=== PATIENT | female | born 1995 | race African-American/Black ===

== ENCOUNTER 2020-10-30 18:21 | Emergency (ER) | payer OTHER, SELFPAY ==
--- NOTE | ~2020-10-30 | CT_ITS ---
EXAMINATION: CT abdomen pelvis w con DATE: 10/30/2020 22:45 INDICATION: Nausea and vomiting TECHNIQUE: Computed tomography (CT) of the abdomen and pelvis was performed with 100 cc Omnipaque 350 intravenous contrast. The dose-length product was 1600.57 mGy-cm. Automated exposure control and ite rative reconstruction technique were employed. COMPARISON: None. FINDINGS: Lung bases are unremarkable. Heart size is normal. No pleural or pericardial effusion. No s ignificant vascular abnormality. No lymphadenopathy. Fatty infiltration of the liver. Gallbladder is present. The spleen, pancreas, adrenal glands and kid neys are normal. Nonobstructive bowel gas pattern. No free air or free fluid. Unremarkable appendix. No acute bone or joint abnormality. IMPRESSION: 1. No acute abdominal abnormality. Reviewed, dictated and finalized at location A.
[2020-10-30 19:23] VITALS: BP 145/103; PULSE 121; RESP 18; TEMP 36.5; O2SAT 96
[2020-10-30 19:44] LABS: Basophils Percent Auto 0.1 % (0.2-1.2); Eosinophils Absolute Auto 0.1 K/mm3 (0-0.3); Eosinophils Percent Auto 0.5 % (0-4.4); Hematocrit 40.7 % (37.0-47.0); Hemoglobin 13.2 g/dL (12.0-15.0); Immature Granulocyte Absolute 0.05 K/mm3 (0.00-0.031); Immature Granulocyte Percent A 0.4 % (0-0.5); Lymphocytes Absolute Auto 1.46 K/mm3 (0.9-3.2); Lymphocytes Percent Auto 10.3 % (18.3-44.2); Mean Corpuscular HGB Conc 32.4 g/dl (32-36); Mean Corpuscular Hemoglobin 28.1 pg (26-34); Mean Corpuscular Volume 86.6 fl (80-100); Mean Platelet Volume 9.4 fl (7.4-10.4); Monocytes Absolute Auto 0.4 K/mm3 (0.1-0.6); Monocytes Percent Auto 2.5 % (2.6-8.5); Neutrophils Absolute Auto 12.3 K/mm3 (1.3-6.7); Neutrophils Percent Auto 86.2 % (45.5-73.1); Platelet Count Result 350 k/mm3 (150-375); Red Cell Distribution Width 14.3 % (11.5-14.5); White Blood Count 14.2 K/mm3 (4.5-10.0)
[2020-10-30 19:54] LABS: Alanine Aminotransferase 19 U/L (4-35); Albumin Level 4.3 g/dL (3.5-5.1); Alkaline Phosphatase 108 U/L (38-126); Anion Gap 8 mmol/L (8-16); Aspartate Amino Transferase 26 U/L (14-36); Bilirubin,Total 0.6 mg/dL (0.2-1.3); Blood Urea Nitrogen 11 mg/dL (7-17); Calcium 8.9 mg/dL (8.4-10.2); Carbon Dioxide 25 mmol/L (22-30); Chloride 107 mmol/L (98-107); Estimated CRCL calculation 121 ml/min; Estimated Glomerular Filt Rate > 60; Glucose 108 mg/dL (65-105); Lipase 85 U/L (23-300); Potassium 3.8 mmol/L (3.4-5.0); Sodium 140 mmol/L (137-145)
[2020-10-30 20:48] LABS: Add Urine Microscopic? YES; Appearance Urine Cloudy (Clear); Bacteria Urine Trace /hpf; Bilirubin Urine Negative (Negative); Blood Urine 1+ (Negative); Color Urine Yellow (Yellow); Glucose Urine UA Negative (Negative); Ketones Urine Negative (Negative); Leukocyte Esterase Ur Negative LEU/UL (Negative); Mucus Urine Moderate /lpf; Nitrate Urine Negative (Negative); Protein Urine 1+ mg/dL (Negative); RBC Urine 0-2 /hpf (0-2); Specific Grav Ur 1.024 (1.001-1.035); Squamous Epithelial Cell Urine Moderate /hpf (Few); Urobilinogen Urine Negative mg/dL (<2.0); WBC Urine 0-3 /hpf
[2020-10-30 21:10] VITALS: BP 130/89; PULSE 90
[2020-10-30 21:11] VITALS: BP 139/100; PULSE 97
[2020-10-30 21:13] VITALS: BP 145/105; PULSE 98; RESP 16; O2SAT 98
[2020-10-30] MEDS: ONDANSETRON INJ 4 MG/2 ML VIAL IV PUSH (21:36)
[2020-10-30] MEDS: SODIUM CHLORIDE 0.9% IV 1,000 ML 999 ML IV CONT (21:37)
[2020-10-30] MEDS: DICYCLOMINE HCL INJ 20 MG/2 ML VIAL IM (21:37)
[2020-10-30 23:00] VITALS: BP 130/98; PULSE 90; RESP 16; O2SAT 99
--- NOTE | 2020-10-30 23:44 | ED.GENADULT ---
HPI - General Adult General Chief complaint: Nausea/Vomiting/Diarrhea Stated complaint: vomiting Time Seen by Provider: 10/30/20 21:01 History of Present Illness HPI narrative: Patient 25-year-old female who presents the emergency department with chief complaint of nausea vomiting and abdominal discomfort. Patient reports that she is also had diarrhea with this reports that her stomach is cramping and reports she is had several episodes of vomiting. The patient states the symptoms began today she had about 6 episodes of diarrhea as well. Patient denies blood in her stool denies fever denies chills. Patient states she feels little on the dehydrated side. Patient reports no sick contacts no new foods. Related Data Allergies Allergy/AdvReac Type Severity Reaction Status Date / Time No Known Allergies Allergy Verified 10/30/20 20:35 Review of Systems Review of Systems: Narrative: A 10 system review of systems was completed on the patient and is negative except for what is stated in the HPI. Nursing and ancillary documentation was reviewed. Exam Narrative: Exam Narrative: GENERAL: Well-appearing, well-nourished, and in no acute distress. HEAD: Normocephalic, atraumatic. EYES: PERRLA and EOMI. ENT: Nares clear, no rhinorrhea or epistaxis. Mucous membranes moist. NECK: Supple. CHEST: Clear to auscultation. No respiratory distress. HEART: Regular rate and rhythm. No murmur heard. Normal peripheral pulses. ABDOMEN: Soft, diffuse mild tenderness, nondistended, normal active bowel sounds. EXTREMITIES: Normal range of motion. No edema. SKIN: Warm, dry, no rash. NEURO: No focal deficits. Alert and oriented x3. PSYCH: Normal mood and affect. Course Vital Signs Vital signs: Vital Signs Temperature 36.5 C 10/30/20 19:23 Pulse Rate 121 H 10/30/20 19:23 Respiratory Rate 18 10/30/20 19:23 Blood Pressure 145/103 H 10/30/20 19:23 Pulse Oximetry 96 10/30/20 19:23 Temperature 36.5 C 10/30/20 19:23 Pulse Rate 90 10/30/20 23:00 Respiratory Rate 16 10/30/20 23:00 Blood Pressure 130/98 H 10/30/20 23:00 Pulse Oximetry 99 10/30/20 23:00 Medical Decision Making Vital Signs Vital Signs: Vital Signs Temperature 36.5 C 10/30/20 19:23 Pulse Rate 121 H 10/30/20 19:23 Respiratory Rate 18 10/30/20 19:23 Blood Pressure 145/103 H 10/30/20 19:23 Pulse Oximetry 96 10/30/20 19:23 Temperature 36.5 C 10/30/20 19:23 Pulse Rate 90 10/30/20 23:00 Respiratory Rate 16 10/30/20 23:00 Blood Pressure 130/98 H 10/30/20 23:00 Pulse Oximetry 99 10/30/20 23:00 Lab Data Result diagrams: 10/30/20 19:35 10/30/20 19:35 Labs: Lab Results 10/30/20 10/30/20 10/30/20 Range/Units 19:35 19:35 20:35 WBC 14.2 H (4.5-10.0) K/mm3 RBC 4.70 (4.2-5.4) M/mm3 Hgb 13.2 (12.0-15.0) g/dL Hct 40.7 (37.0-47.0) % MCV 86.6 (80-100) fl MCH 28.1 (26-34) pg MCHC 32.4 (32-36) g/dl RDW 14.3 (11.5-14.5) % Plt Count 350 (150-375) k/mm3 MPV 9.4 (7.4-10.4) fl Immature Gran % (Auto) 0.4 (0-0.5) % Neut % (Auto) 86.2 H (45.5-73.1) % Lymph % (Auto) 10.3 L (18.3-44.2) % [place] % (Auto) 2.5 L (2.6-8.5) % Eos % (Auto) 0.5 (0-4.4) % Baso % (Auto) 0.1 L (0.2-1.2) % Lymph # (Auto) 1.46 (0.9-3.2) K/mm3 [place] # (Auto) 0.4 (0.1-0.6) K/mm3 Eos # (Auto) 0.1 (0-0.3) K/mm3 Baso # (Auto) 0.0 (0.0-0.1) K/mm3 Abs Immat Gran (auto) 0.05 H (0.00-0.031) K/mm3 Absolute Neuts (auto) 12.3 H (1.3-6.7) K/mm3 Absolute Nucleated RBC 0.0 (0.0-0.012) K/mm3 Nucleated RBC % 0.0 (0.0-0.2) % Sodium 140 (137-145) mmol/L Potassium 3.8 (3.4-5.0) mmol/L Chloride 107 (98-107) mmol/L Carbon Dioxide 25 (22-30) mmol/L Anion Gap 8 (8-16) mmol/L BUN 11 (7-17) mg/dL Creatinine 0.80 (0.7-1.0) mg/dL Estim Creat Clear Calc 121 ml/min Estimated GFR > 60 (59 - ) Gl
[2020-10-31 00:02] VITALS: BP 128/90; PULSE 90; RESP 16; TEMP 36.9; O2SAT 99
== END 2020-10-31 00:02 | disposition home or self-care (01) ==
PROVIDERS: Emergency Medicine; Emergency Provider Emergency Medicine
DX: K52.9 Noninfective gastroenteritis and colitis, unspecified (principal)
CPT/HCPCS: 36415; 74177; 80053; 81001; 81025; 83690; 85025; 96361; 96374; 96375; 99284; J0500; J2405; J7030; Q9967

== ENCOUNTER 2020-12-23 11:13 | Emergency (ER) | payer OTHER, SELFPAY ==
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
[2020-12-23 11:09] VITALS: BP 131/78; PULSE 82; RESP 18; TEMP 36.7; O2SAT 99
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
== END 2020-12-23 12:28 | disposition home or self-care (01) ==
PROVIDERS: Emergency Provider Emergency Medicine
DX: S69.91XA Unspecified injury of right wrist, hand and finger(s), initial encounter (principal); S09.93XA Unspecified injury of face, initial encounter; E66.9 Obesity, unspecified; Z68.41 Body mass index [BMI] 40.0-44.9, adult; V43.52XA Car driver injured in collision with other type car in traffic accident, initial encounter
CPT/HCPCS: 73130; 99283